=== PATIENT | female | born 1990 | race Caucasian/White ===

== ENCOUNTER 2018-01-17 12:14 | Emergency (ER) | payer MEDICAID ==
[~2018-01-17] VITALS: Ht 165.1 cm; Wt 55.3 kg
[~2018-01-17 12:14] MED LIST: ACETAMINOPHEN325 MG PO; AMOXICILLIN500 M1 PO; CIPRO500 MG PO; CRANBERRY475 MG PO; IBUPROFEN600 MG PO; PERCOCET 5-3251 TAB PO; PRENATAL COMPLE1 TAB PO
[2018-01-17 12:33] VITALS: Ht 165.1 cm; Wt 55.3 kg
[2018-01-17 13:21] LABS: BASOPHILS 0.3 % (0-2); EOSINOPHILS 2.1 % (0-7); IMMATURE GRANULOCYTES 0.1 % (0-5); LYMPHOCYTES 35.6 % (15-50); MCH 30.6 pg (26.0-34.0); MCHC 33.3 g/dL (31.0-37.0); MCV 91.8 fL (80.0-100.0); MEAN PLATELET VOLUME 11.3 fL (7.4-10.4); MONOCYTES 5.9 % (2-11); RBC 4.25 10x6/uL (4.00-5.40); RDW 13.4 % (11.5-14.5); WBC 7.1 10x3/uL (4.8-10.8)
[2018-01-17 13:25] LABS: PLATELET COUNT 143 10x3/uL (130-400)
[2018-01-17 13:37] LABS: COLOR ORANGE (YELLOW)
[2018-01-17 13:38] LABS: AMORPHOUS SEDIMENT >1+ /lpf (NONE SEEN); APPEARANCE CLOUDY (CLEAR); BACTERIA NONE SEEN /hpf (NONE SEEN); BILIRUBIN NEGATIVE (NEGATIVE); EPITHELIAL CELLS RARE /hpf (0-5); GLUCOSE NEGATIVE (NEGATIVE); KETONE NEGATIVE (NEGATIVE); NITRITE NEGATIVE (NEGATIVE); PROTEIN NEGATIVE (NEGATIVE); RED CELLS - URINE RARE /hpf (0-5); SPECIFIC GRAVITY 1.015 (1.005-1.020); UROBILINOGEN NORMAL (NORMAL); WHITE CELLS - URINE NSEEN /hpf (0-5)
[2018-01-17 13:44] LABS: ALBUMIN 4.1 g/dL (3.4-5.0); ALKALINE PHOSPHATASE 54 U/L (46-116); ALT (SGPT) 21 U/L (10-68); BILIRUBIN - TOTAL 0.44 mg/dL (0.2-1.3); CALC OSMOLALITY 277 mosm/kg (275-300); CALCIUM 9.6 mg/dL (8.5-10.1); CARBON DIOXIDE 25.7 mmol/L (21.0-32.0); CHLORIDE - SERUM 105 mmol/L (98-107); CREATININE - SERUM 0.7 mg/dL (0.6-1.3); GLUCOSE 81 mg/dL (74-106); POTASSIUM - SERUM 3.8 mmol/L (3.5-5.1); PROTEIN - SERUM 7.8 g/dL (6.4-8.2); SODIUM 140 mmol/L (136-145); UREA NITROGEN 12 mg/dL (7-18); eGFR NON AFRICAN AMERICAN > 90 mL/min (90-120)
[2018-01-17 14:11] LABS: HCG URINE NEGATIVE (NEGATIVE)
[2018-01-17] MEDS ORDERED: MACROBID100 MG PO (15:41)
[2018-01-17] MEDS ORDERED: ZOFRAN4 MG PO (15:41)
[2018-01-17 17:40] VITALS: BP 104/63
== END 2018-01-17 17:41 | disposition home or self-care (01) ==
LOC: D.ER 12:14
PROVIDERS: Family Medicine
DX: R10.9 Unspecified abdominal pain (principal); R68.89 Other general symptoms and signs

== ENCOUNTER → 2018-03-04 15:00 | Outpatient (CLI) | payer MEDICAID ==
[~2018-03-04 15:00] MED LIST changes: +MACROBID100 MG PO; +ZOFRAN4 MG PO
== END | disposition home or self-care (01) ==
LOC: D.US 15:00
DX: Z87.440 Personal history of urinary (tract) infections (principal)

== ENCOUNTER 2018-03-16 23:53 | Emergency (ER) | payer MEDICAID ==
[~2018-03-16] VITALS: Ht 165.1 cm; Wt 56.8 kg
[2018-03-16 23:58] VITALS: Ht 165.1 cm; Wt 56.8 kg
[2018-03-17 00:22] LABS: BASOPHILS 0.3 % (0-2); EOSINOPHILS 2.3 % (0-7); HEMATOCRIT 38.3 % (36.0-48.0); HEMOGLOBIN 13.1 g/dL (12-16); IMMATURE GRANULOCYTES 0.3 % (0-5); MCH 30.8 pg (26.0-34.0); MCHC 34.2 g/dL (31.0-37.0); MCV 89.9 fL (80.0-100.0); MEAN PLATELET VOLUME 11.2 fL (7.4-10.4); MONOCYTES 9.8 % (2-11); NEUTROPHILS 55.3 % (40-80); PLATELET COUNT 143 10x3/uL (130-400); RBC 4.26 10x6/uL (4.00-5.40); RDW 13.2 % (11.5-14.5); WBC 7.4 10x3/uL (4.8-10.8)
[2018-03-17 00:27] LABS: APPEARANCE CLOUDY (CLEAR); BILIRUBIN NEGATIVE (NEGATIVE); COLOR YELLOW (YELLOW); GLUCOSE NEGATIVE (NEGATIVE); KETONE NEGATIVE (NEGATIVE); NITRITE NEGATIVE (NEGATIVE); PROTEIN NEGATIVE (NEGATIVE); SPECIFIC GRAVITY 1.015 (1.005-1.020); UROBILINOGEN NORMAL (NORMAL)
[2018-03-17 00:29] LABS: BACTERIA MODERATE /hpf (NONE SEEN); EPITHELIAL CELLS 0-5 /hpf (0-5); RED CELLS - URINE NONE SEEN /hpf (0-5); WHITE CELLS - URINE 0-5 /hpf (0-5)
[2018-03-17 00:30] LABS: AMORPHOUS SEDIMENT >1+ /lpf (NONE SEEN)
[2018-03-17 00:32] LABS: ALBUMIN 3.8 g/dL (3.4-5.0); ALKALINE PHOSPHATASE 44 U/L (46-116); ALT (SGPT) 21 U/L (10-68); BILIRUBIN - TOTAL 0.22 mg/dL (0.2-1.3); CALC OSMOLALITY 279 mosm/kg (275-300); CALCIUM 9.1 mg/dL (8.5-10.1); CARBON DIOXIDE 27.5 mmol/L (21.0-32.0); CHLORIDE - SERUM 102 mmol/L (98-107); CREATININE - SERUM 0.8 mg/dL (0.6-1.3); GLUCOSE 97 mg/dL (74-106); POTASSIUM - SERUM 3.6 mmol/L (3.5-5.1); PROTEIN - SERUM 7.4 g/dL (6.4-8.2); SODIUM 139 mmol/L (136-145); UREA NITROGEN 17 mg/dL (7-18); eGFR NON AFRICAN AMERICAN > 90 mL/min (90-120)
[2018-03-17 00:35] LABS: AMYLASE - SERUM 51 U/L (25-115); LIPASE 115 U/L (73-393); TROPONIN-I < 0.017 ng/mL (0.000-0.060)
[2018-03-17] MEDS ORDERED: ULTRAM50 MG PO (02:09)
[2018-03-17 02:18] VITALS: BP 122/60
== END 2018-03-17 02:18 | disposition home or self-care (01) ==
LOC: D.ER 23:53
PROVIDERS: Family Medicine
DX: N23 Unspecified renal colic (principal); R11.2 Nausea with vomiting, unspecified

== ENCOUNTER 2018-04-19 06:00 | Day surgery (SDC) | payer MEDICAID ==
[2018-04-18 17:26] LABS: HEMATOCRIT 39.6 % (36.0-48.0); HEMOGLOBIN 13.3 g/dL (12-16); MCH 30.9 pg (26.0-34.0); MCHC 33.6 g/dL (31.0-37.0); MCV 92.1 fL (80.0-100.0); RBC 4.3 10x6/uL (4.00-5.40); RDW 13.5 % (11.5-14.5); WBC 6.9 10x3/uL (4.8-10.8)
[~2018-04-19] VITALS: Ht 170.2 cm; Wt 56.7 kg
[~2018-04-19 06:00] MED LIST changes: +MERIBIN5 MG PO; +ULTRAM50 MG PO; +VITAMIN B-121000 MCG PO; +VITAMIN D31000 UNIT PO
[2018-04-19 06:21] VITALS: BP 98/55; Ht 170.2 cm; Wt 56.7 kg
--- NOTE | 2018-04-19 09:44 | OP ---
PATIENT NAME: ZEV SOLORIO MEDICAL RECORD: [id number] :90 LOCATION:D.OPS ADMISSION DATE: SURGEON: TY ANTONIO MD DATE OF OPERATION: 04/19/2018 SURGEON: Ty Antonio MD ANESTHESIA: TIVA by Chad Grant CRNA DIAGNOSIS: Interstitial cystitis. PROCEDURES: Cystoscopy, hydrodistention of bladder, intravesical Rimso instillation. FINDINGS: Single ureteral orifices bilaterally. No bladder tumors. Bladder inflammation is seen. BLOOD LOSS: None. CLINICAL HISTORY: This is a 27-year-old female, who has symptoms of recurrent urinary tract infections as well as bilateral flank and epigastric pain, suprapubic pain and dyspareunia. These symptoms have been present for several months and antibiotics have not helped. She also has urinary frequency every 1 hour during the day and nocturia times 2 to 3. There is urge incontinence. She has symptoms quite suggestive of interstitial cystitis. She also had a CT scan of the abdomen and pelvis on 03/17/2018, which showed no renal stones, no renal masses and no hydronephrosis. She is not allergic to any medications. She was given Ancef IV preschool paraprofessional to the OR. DESCRIPTION OF PROCEDURE: The patient was given IV sedation. She was placed in the dorsal lithotomy position and prepped and draped. A 17-Trinidadian cystoscope was introduced into the bladder. Findings are as outlined above. The bladder was filled to 500 mL of capacity and the volume was held for about a minute. At this time, photographs were taken of the bladder and we saw a quite significant inflammation of the bladder. The bladder was then fully emptied through the cystoscope sheath and the scope was removed. A 14-Trinidadian red rubber catheter was then introduced into the bladder and 50 mL of Rimso solution was instilled into the bladder through the catheter. The catheter was then removed, leaving the solution in the bladder. The patient will hold the solution in the bladder for at least 15 minutes and then void it out. TRANSINT:[id number] Voice Confirmation ID: [id number] DOCUMENT ID: [id number] TY ANTONIO MD at 0944 CC: [id number] DICTATION DATE: 04/19/18906 COMPONENT ENGINEER: 04/19/18 0941 [id number] [place] [address]
--- NOTE | 2018-04-19 09:47 | NUR ---
PT DRINKING/EATING AT THIS TIME. DENIES PAIN/NEEDS AT THIS TIME.
--- NOTE | 2018-04-19 10:06 | NUR ---
0950 PT INSTRUCTED TO LAY ON RIGHT SIDE SUPINE TO ALLOW RIMSO TO COAT LINING OF BLADDER. Chao CARCAMO R.N.
--- NOTE | 2018-04-19 14:10 | NUR ---
1105 DRESSED. AWAKE & ALERT. GIVEN DISCHARGE INFORMATION INCLUDING: MED REC, RTC APPT., [facility] [place] [place] D/C INSTRUCTIONS, & POST CYSTOSCOPY D/C INSTRUCTIONS. PT VOICED UNDERSTANDING. TO PRIVATE CAR PER WHEELCHAIR BY VOLUNTEER. HOME WITH , AMISHA SOLORIO. Chao CARCAMO R.N.
== END 2018-04-19 11:05 | disposition home or self-care (01) ==
LOC: D.OPS 06:00 → D.PAN 08:45 → D.OPS 08:45
PROVIDERS: Anesthesiology
DX: N30.10 Interstitial cystitis (chronic) without hematuria (principal)

== ENCOUNTER 2020-05-15 15:54 | Emergency (ER) | payer MEDICAID ==
[~2020-05-15] VITALS: Ht 170.2 cm; Wt 56.8 kg
[2020-05-15 15:59] VITALS: BP 118/76; Ht 170.2 cm; Wt 56.8 kg
[2020-05-15 16:21] LABS: BASOPHILS 0.3 % (0-2); HEMATOCRIT 44.3 % (36.0-48.0); HEMOGLOBIN 15.1 g/dL (12-16); IMMATURE GRANULOCYTES 0.1 % (0-5); LYMPHOCYTES 25.7 % (15-50); MCH 31.3 pg (26.0-34.0); MCHC 34.1 g/dL (31.0-37.0); MCV 91.7 fL (80.0-100.0); MONOCYTES 7.7 % (2-11); NEUTROPHIL ABS# 4.56 10x3/uL (1.56-6.13); NEUTROPHILS 65.2 % (40-80); PLATELET COUNT 165 10x3/uL (130-400); RBC 4.83 10x6/uL (4.00-5.40)
[2020-05-15 16:29] LABS: CALC OSMOLALITY 273 mosm/kg (275-300); CALCIUM 9.3 mg/dL (8.5-10.1); CARBON DIOXIDE 27.2 mmol/L (21.0-32.0); CHLORIDE - SERUM 102 mmol/L (98-107); CREATININE - SERUM 0.8 mg/dL (0.6-1.3); GLUCOSE 118 mg/dL (74-106); POTASSIUM - SERUM 3.8 mmol/L (3.5-5.1); SODIUM 136 mmol/L (136-145); UREA NITROGEN 14 mg/dL (7-18); eGFR NON AFRICAN AMERICAN 90 mL/min (90-120)
[2020-05-15 16:32] LABS: ALBUMIN 4.3 g/dL (3.4-5.0); ALKALINE PHOSPHATASE 60 U/L (30-120); ALT (SGPT) 26 U/L (10-68); BILIRUBIN - TOTAL 0.47 mg/dL (0.2-1.3); PROTEIN - SERUM 8.3 g/dL (6.4-8.2)
[2020-05-15 17:16] LABS: BILIRUBIN NEGATIVE (NEGATIVE); KETONE SMALL mg/dL (NEGATIVE); NITRITE NEGATIVE (NEGATIVE); UROBILINOGEN NORMAL mg/dL (< 2); WHITE CELLS - URINE 0-5 HPF (0-4)
[2020-05-15 17:17] LABS: BACTERIA FEW HPF (NONE SEEN); SQUAMOUS EPITHELIAL 0-5 HPF (0-4)
[2020-05-15] MEDS ORDERED: MACROBID100 MG PO (17:24)
== END 2020-05-15 18:09 | disposition home or self-care (01) ==
LOC: D.ER 15:54
PROVIDERS: Family Medicine
DX: E86.0 Dehydration (principal); N39.0 Urinary tract infection, site not specified; R55 Syncope and collapse